=== PATIENT | male | born 1955 | race African-American/Black ===

== ENCOUNTER 2021-09-28 16:00 | Emergency (ER) | payer BC, OTHER ==
[2021-09-28 16:45] LABS: Absolute Lymphocytes (CBC) 1.1 K/uL (0.7-4.9); Hematocrit 42.4 % (39.6-49.0); Lymphocytes % 21.2 % (15.3-44.8); MPV 8.6 fL (7.6-11.3); RBC Red Blood Cell Count 4.06 M/uL (4.33-5.43)
[2021-09-28 16:58] LABS: Albumin 3.4 g/dL (3.4-5.0); Bilirubin Direct 0.2 mg/dL (0-0.2)
[2021-09-28 17:03] LABS: Bilirubin Total 0.7 mg/dL (0.2-1.0); Protein, Total 7.8 g/dL (6.4-8.2)
[2021-09-28] MEDS ORDERED: NA CHLORIDE 0.9% 500 ML ONE (17:14)
[2021-09-28] MEDS ORDERED: METOCLOPRAMIDE 10 MG/2mL INJ ONE (17:14)
[2021-09-28] MEDS ORDERED: FAMOTIDINE 20 MG/2 ML VIAL IV ONE (17:14)
[2021-09-28 17:24] LABS: Potassium 4.1 mmol/L (3.5-5.1)
--- NOTE | 2021-09-28 18:17 | RAD REPORT ---
EXAM DESCRIPTION: CTAbdomen Pelvis W Contrast - 09/28/2021 6:08 pm CLINICAL HISTORY: Abdominal pain. abdominal pain COMPARISON: CT ABD PELVIS W CONTRAST dated 10/28/2011 TECHNIQUE: Biphasic CT imaging of the abdomen and pelvis was performed with 100 ml non-ionic IV cont rast. All CT scans are performed using dose optimization technique as appropriate and may include automated exposure control or mA/KV adjustment according to patient size. FINDINGS: The lung bases are clear. An edematous appearance is seen to the stomach. The liver, spleen, pancreas, adrenal glands and kidneys are within normal limits. Small cysts are pre sent in both kidneys. No bowel obstruction, free air, free fluid or abscess. The appendix is normal. Aortic atherosclerosi s is present. No evidence of significant lymphadenopathy. Prostate gland is mildly prominent. Mild lumbar degenerative changes. IMPRESSION: Edematous appearance to the stomach is present which is a nonspecific finding. The stoma ch itself is incompletely distended and incompletely evaluated. Follow-up endoscopy would be suggeste d for direct visualization.
[2021-09-28] MEDS ORDERED: LIDOCAINE VISCOUS 2% SOLN 15 ML UDC ONE (18:57)
[2021-09-28] MEDS ORDERED: MAGNES/ALUMIN/SIMET 30ML UCUP ONE (18:57)
--- NOTE | 2021-09-28 19:36 | ER ---
Nurse's Notes [facility] Name: Thierno Golden Age: 66 yrs Sex: Male : 1955 Arrival Date: 09/28/2021 Time: 16:01 Bed 16 Private MD: Diagnosis: Abdominal pain, unspecified Presentation: 09/28 16:14 Chief complaint: Patient states: Generalized abdominal pain that feels like his ww previous gastric ulcer. Admits to having a decrease in appetite for the past 3-4 days and unable to have a bowel movement. Coronavirus screen: Vaccine status: Client denies travel out of the [place] in the last 14 days. Ebola Screen: Patient denies travel to an Ebola-affected area in the 21 days before illness onset. Initial Sepsis Screen: Does the patient meet any 2 criteria? No. Patient's initial sepsis screen is negative. Does the patient have a suspected source of infection? No. Patient's initial sepsis screen is negative. Risk Assessment: Do you want to hurt yourself or someone else? Patient reports no desire to harm self or others. Onset of symptoms is unknown. 16:14 Method Of Arrival: Ambulatory ww 16:14 Acuity: ANJELICA 3 ww Triage Assessment: 16:16 General: Appears uncomfortable, Behavior is calm, cooperative. Pain: Complains of pain ww in abdomen. Neuro: Level of Consciousness is awake, alert, obeys commands, Oriented to person, place, time, situation, Gait is steady, Speech is normal. Cardiovascular: Patient's skin is warm and dry. Respiratory: Airway is patent Respiratory effort is even, unlabored, Respiratory pattern is regular, symmetrical. GI: Reports lower abdominal pain, upper abdominal pain, constipation, intolerance of food. : No signs and/or symptoms were reported regarding the genitourinary system. Historical: - Allergies: 16:16 No Known Allergies; ww - Home Meds: 16:16 None [Active]; ww - PMHx: 16:16 gastric ulcer; ww - PSHx: 16:16 None; ww - Immunization history:: Adult Immunizations not up to date. - Social history:: Smoking status: Reported history of juuling and/or vaping. Screenin:17 Abuse screen: Denies threats or abuse. Denies injuries from another. Nutritional ww screening: No deficits noted. Tuberculosis screening: No symptoms or risk factors identified. Fall Risk None identified. Assessment: 16:10 General: Appears comfortable, well groomed, Behavior is calm, cooperative, appropriate cb5 for age. Pain: Complains of pain in abdomen Pain currently is 4 out of 10 on a pain scale. Neuro: No deficits noted. Level of Consciousness is awake, alert, obeys commands, Oriented to person, place, time, situation. Cardiovascular: No deficits noted. Respiratory: No deficits noted. GI: Bowel sounds present X 4 quads. Abd is soft Abdomen is tender to palpation. : No deficits noted. EENT: No deficits noted. Derm: No deficits noted. Musculoskeletal: No deficits noted. 17:40 Reassessment: Patient and/or family updated on plan of care and expected duration. Pain cb5 level reassessed. 18:40 Reassessment: Patient and/or family updated on plan of care and expected duration. Pain cb5 level reassessed. Vital Signs: 16:14 BP 168 / 100; Pulse 66; Resp 16; Temp 98.1; Pulse Ox 100% ; Weight 56.7 kg; Height 5 ww ft. 10 in. (177.80 cm); 19:40 BP 148 / 94; Pulse 69; Resp 16; Temp 97.5; Pulse Ox 99% on R/A; Pain 0/10; jose 16:14 Body Mass Index 17.94 (56.70 kg, 177.80 cm) ED Course: 16:01 Patient arrived in ED. as 16:16 Triage completed. 16:16 Arm band placed on right wrist. 16:17 Andrey Santos PA is PHCP. [facility] 16:17 Brandon Muñiz MD is Attending Physician. [facility] 16:17 Patient has correct armband on for positive identification. Bed in low position. Call ww light in reach. Side rails up X 1. Adult w/ patient. Pulse ox on. NIBP on. 16:22 Anastacia Tubbs, STEFFANY is Primary Nurse. cb5 16:25 No provider procedures requiring assistance completed. cb5 16:42 Inserted saline lock: 20 gauge in left antecubital area, using aseptic technique. lr4 18:08 CT Abd/Pelvis - IV Contrast Only In Process Unspecified. EDMS 19:01 Report given to Kasia Ag cb5 19:36 Brian Jordan MD is Referral Physician. [facility] 20:00 intact, bleeding controlled, No redness/swelling at site. Pressure dressing applied. jose Administered Medications: 17:15 Drug: Pepcid (famotidine) 20 mg Route: IVP; Site: left antecubital; cb5 17:15 Drug: NS 0.9% 500 ml Route: IV; Rate: bolus; Site: left antecubital; cb5 17:15 Drug: Reglan (metoCLOPramide) 20 mg Route: IVP; Site: left antecubital; cb5 18:55 Drug: GI Cocktail without - (Maalox Suspension 30 ml, Lidocaine Liquid 2 % 15 cb5 ml) Route: PO; 19:37 Follow up: Response: Nausea is decreased jose Outcome: 19:36 Discharge ordered by MD. jmm 19:40 Condition: stable jose 19:59 Discharged to home ambulatory, with family. jose 19:59 Discharge instructions given to patient, Instructed on discharge instructions, follow up and referral plans. medication usage, Demonstrated understanding of instructions, follow-up care, medications, Prescriptions given X 3. 20:00 Patient left the ED. jose Signatures: Dispatcher [employer] EDMS Andrey Santos PA PA jmm Martinez, Amelia as O'Farrell, Brenda RN Fiona Franklin RN Anastacia Ledezma RN RN cb5 Noa Das RN RN lr4
--- NOTE | 2021-09-28 19:36 | EDPHYS ---
Physician Documentation [facility] Name: Thierno Golden Age: 66 yrs Sex: Male : 1955 Arrival Date: 09/28/2021 Time: 16:01 Bed 16 Private MD: BALDEV Physician Brandon Muñiz HPI: 09/28 16:17 This 66 yrs old Black Male presents to ER via Ambulatory with complaints of Abdominal jmm Pain, Constipation, Decreased Appetite. 16:17 The patient presents with abdominal pain. Onset: The symptoms/episode began/occurred jmm gradually. The symptoms do not radiate. Associated signs and symptoms: Pertinent positives: nausea and vomiting, Pertinent negatives: diarrhea. The symptoms are described as achy. This is a 66-year-old male with history of gastric ulcers in the presents emerged part with complaints of epigastric pain nausea and vomiting this is been ongoing but worse over the past week. Denies diarrhea. States not having a bowel movement in the past 3 days.. Historical: - Allergies: 16:16 No Known Allergies; ww - Home Meds: 16:16 None [Active]; ww - PMHx: 16:16 gastric ulcer; ww - PSHx: 16:16 None; ww - Immunization history:: Adult Immunizations not up to date. - Social history:: Smoking status: Reported history of juuling and/or vaping. ROS: 16:17 Constitutional: Negative for fever, chills, and weight loss, Cardiovascular: Negative jmm for chest pain, palpitations, and edema, Respiratory: Negative for shortness of breath, cough, wheezing, and pleuritic chest pain. 16:17 Abdomen/GI: Positive for abdominal pain, nausea and vomiting. 16:17 All other systems are negative. Exam: 16:17 Constitutional: This is a well developed, well nourished patient who is awake, alert, jmm and in no acute distress. Head/Face: atraumatic. Eyes: EOMI, no conjunctival erythema appreciated ENT: Moist Mucus Membranes Neck: Trachea midline, Supple Chest/axilla: Normal chest wall appearance and motion. Cardiovascular: Regular rate and rhythm. No edema appreciated Respiratory: Normal respirations, no respiratory distress appreciated 16:17 Back: Normal ROM Skin: General appearance color normal MS/ Extremity: Moves all extremities, no obvious deformities appreciated, no edema noted to the lower extremities Neuro: Awake and alert Psych: Behavior is normal, Mood is normal, Patient is cooperative and pleasant 16:17 Abdomen/GI: Inspection: abdomen appears normal, Bowel sounds: normal, Palpation: soft, mild abdominal tenderness, in the epigastric area. Vital Signs: 16:14 BP 168 / 100; Pulse 66; Resp 16; Temp 98.1; Pulse Ox 100% ; Weight 56.7 kg; Height 5 ww ft. 10 in. (177.80 cm); 19:40 BP 148 / 94; Pulse 69; Resp 16; Temp 97.5; Pulse Ox 99% on R/A; Pain 0/10; jose 16:14 Body Mass Index 17.94 (56.70 kg, 177.80 cm) ww MDM: 16:17 Patient medically screened. kenji 19:35 Data reviewed: vital signs, nurses notes. Counseling: I had a detailed discussion with chris the patient and/or guardian regarding: the historical points, exam findings, and any diagnostic results supporting the discharge/admit diagnosis, lab results, radiology results, the need for outpatient follow up, to return to the emergency department if symptoms worsen or persist or if there are any questions or concerns that arise at home. ED course: Pain is relieved in the ER. Patient advised to follow with GI for further evaluation otherwise given strict return precautions. Patient understood and agrees plan of care.. 03 16:23 Order name: Basic Metabolic Panel; Complete Time: 17:38 [facility] 09/28 16:23 Order name: CBC with Diff; Complete Time: 17:06 [facility] 09/28 16:23 Order name: Hepatic Function; Complete Time: 17:38 [facility] 09/28 16:23 Order name: Lipase; Complete Time: 17:38 [facility] 09/28 17:06 Order name: CT Abd/Pelvis - IV Contrast Only; Complete Time: 18:19 [facility] 09/28 16:23 Order name: IV Saline Lock; Complete Time: 17:09 [facility] 09/28 16:23 Order name: Labs collected and sent; Complete Time: 17:09 [facility] Administered Medications: 17:15 Drug: Pepcid (famotidine) 20 mg Route: IVP; Site: left antecubital; cb5 17:15 Drug: NS 0.9% 500 ml Route: IV; Rate: bolus; Site: left antecubital; cb5 17:15 Drug: Reglan (metoCLOPramide) 20 mg Route: IVP; Site: left antecubital; cb5 18:55 Drug: GI Cocktail without - (Maalox Suspension 30 ml, Lidocaine Liquid 2 % 15 cb5 ml) Route: PO; 19:37 Follow up: Response: Nausea is decreased jose Disposition: 09/29 18:27 Co-signature as Attending Physician, Brandon Muñiz MD I agree with the [facility] of care. Disposition Summary: 09/28/21 19:36 Discharge Ordered Location: Home [facility] Condition: Stable [facility] Diagnosis - Abdominal pain, unspecified [facility] Followup: [facility] - With: Brian Jordan MD - When: 2 - 3 days - Reason: Recheck today's complaints, Continuance of care, Re-evaluation by your physician Discharge Instructions: - Discharge Summary Sheet [facility] - Abdominal Pain, Adult [facility] Forms: - Medication Reconciliation Form [facility] - Thank You Letter [facility] - Antibiotic Education [facility] - Prescription Opioid Use [facility] Prescriptions: - Carafate 1 gram Oral Tablet - take 1 tablet by ORAL route 4 times per day take on an empty stomach, beginning jm on waking and last dose at bedtime; 100 tablet; Refills: 0, Product Selection Permitted - Pepcid 20 mg Oral Tablet - take 1 tablet by ORAL route every 12 hours for 10 days; 20 tablet; Refills: 0, [facility] Product Selection Permitted - Reglan 10 mg Oral Tablet - take 1 tablet by ORAL route every 6 hours take 30 minutes before meals and at [facility] bedtime; 20 tablet; Refills: 0, Product Selection Permitted Signatures: Dispatcher [employer] Brandon Osei MD MD cha Mickail, Joel, PA PA [facility] Fiona Santana RN Anastacia Ledezma RN RN cb5 Kimberli Esquivel RN
[2021-09-28 20:40] VITALS: BP 148/94; TEMP 97.5; O2SAT 99
== END 2021-09-28 20:00 | disposition home or self-care (01) ==
LOC: ER 16:00
DX: R10.13 Epigastric pain (principal); R11.2 Nausea with vomiting, unspecified
CPT/HCPCS: 85025; 80048; 36415; 80076; 83690; 74177; 96375; 96374; 99284; Q9967; J2765; J7040